=== PATIENT | female | born 1965 | race Caucasian/White ===

== ENCOUNTER 2021-10-08 13:56 | Observation (INO) | payer OTHER ==
[~2021-10-08] VITALS: Ht 167.6 cm; Wt 129.3 kg
[~2021-10-08 13:56] MED LIST: ALBU90OI6 INH; ALPR.25 PO; ALPR1 PO; AMLO5 PO; ATEN50 PO; Ambien10 MG PO; CLON.1 PO; Crutch1 EACH MISC; DIPH50 PO; DOCU100 PO; ESCI20 PO; ESTR.1TPBW TOP; ESTR2 PO; FLUV50 PO; HYDACE5 PO; HYDR1TAB94; IBUP800 PO; K-Dur20 MEQ PO; LISHYD2012 PO; LISHYD2025 PO; LISI20 PO; LORA.5 PO; LOVA40 PO; MECL12.5 PO; MECL25 PO; NIFE30ER PO; Naprosyn500 MG PO; Norco 5-325 Ta1 EACH PO; OLME20 PO; OMEP20ER PO; ONDA8 PO; OXYACE7.5T PO; PARO20 PO; PENVK500 PO; POTA10T PO; POTCHL20ER PO; PRAV20 PO; PRED20 PO; Percocet 5-3251 EACH PO; TRIA80TC TOP; VICODIN 5-3001 EACH; ZOLP10 PO; ZOLP5 PO
[2021-10-08 14:58] LABS: BASOPHILS ABSOLUTE AUTO 0.07 K/mm3 (0.00-0.23); BASOPHILS PERCENT AUTO 0 % (0-2); EOSINOPHILS ABSOLUTE AUTO 0.07 K/mm3 (0.00-0.68); EOSINOPHILS PERCENT AUTO 0 % (0-6); Hemoglobin 14.9 g/dL (11.5-16.0); IMMATURE GRAN ABSOLUTE AUTO 0.06 K/mm3 (0.00-0.10); IMMATURE GRAN PERCENT AUTO 0 % (0-1); LYMPHOCYTES PERCENT AUTO 17 % (21-46); MONOCYTES ABSOLUTE AUTO 1.46 K/mm3 (0.16-1.47); MONOCYTES PERCENT AUTO 8 % (4-13); Mean Corpuscular HGB 28.1 pg (26.0-34.0); Mean Corpuscular HGB Conc 33.9 g/dL (31.5-36.5); Mean Corpuscular Volume 83 fL (80-100); Mean Platelet Volume 9.1 fL (9.1-12.4); NEUTROPHILS ABSOLUTE AUTO 12.96 K/mm3 (1.96-9.15); NEUTROPHILS PERCENT AUTO 74 % (41-73); Platelet Count 304 K/mm3 (150-400); RDW Coefficient Variation 14.5 % (11.7-14.2); RDW Standard Deviation 43.6 fL (35.1-46.3); Red Blood Cell Count 5.31 M/mm3 (3.80-5.20); White Blood Cell Count 17.62 K/mm3 (4.00-11.30)
[2021-10-08 15:35] LABS: Source, Urine Clean Catch
[2021-10-08 15:47] LABS: Alanine Aminotransfer (ALT/SGP 54 U/L (12-78); Albumin, Blood 4.1 g/dL (3.4-5.0); Albumin/Globulin Ratio 1.2 (0.8-1.8); Alk Phos 98 U/L (50-136); Anion Gap 10 mmol/L (6-16); Aspartate Aminotrans (AST/SGOT 18 U/L (12-37); Bilirubin, Total 0.7 mg/dL (0.1-1.0); Blood Urea Nitrogen 7 mg/dL (8-24); Bun/Creatinine Ratio 13.6 (12.0-20.0); CO2, Blood 24 mmol/L (21-32); Calcium, Blood 9.4 mg/dL (8.5-10.1); Chloride, Blood 98 mmol/L (98-108); Creatinine, Blood 0.52 mg/dL (0.40-1.00); Globulin, Blood 3.3 g/dL (2.2-4.0); Glomerular Filtration Rate >60 (60-); Glucose, Blood 111 mg/dL (70-99); Potassium, Blood 4.1 mmol/L (3.5-5.5); Sodium, Blood 132 mmol/L (136-145); Total Protein, Blood 7.4 g/dL (6.4-8.2)
[2021-10-08 15:49] LABS: Appearance, Urine Hazy (Clear); Blood, Urine 2+ (Neg); Color, Urine Amber (P-Yellow); Glucose Qualitative, Urine Neg (Neg); Ketones, Urine 1+ (Neg); Leukocyte Esterase, Urine 1+ (Neg); Nitrite, Urine Neg (Neg); Protein, Urine 3+ (Neg); Urobilinogen, Urine 1+ (Normal); pH, Urine 6.5 (5.0-8.0)
[2021-10-08 16:07] LABS: Bilirubin, Urine 1+ (Neg)
[2021-10-08 16:11] LABS: Bacteria Many /hpf; Mucus Light (0-Heavy); Red Blood Cells, Urine 0-2 /hpf (0-2); Squamous Epithelial Cells Many /hpf (Few)
[2021-10-08] MEDS ORDERED: CYCL10 PO (17:39)
[2021-10-08] MEDS ORDERED: DOXE10 PO (17:39)
[2021-10-08] MEDS ORDERED: CATAPRES0.1 MG PO (17:39)
[2021-10-08] MEDS ORDERED: LISI20 PO (17:40)
[2021-10-08] MEDS ORDERED: HYDCHL25 PO (17:40)
[2021-10-08] MEDS ORDERED: CONEST1.25 PO (17:40)
[2021-10-08 18:20] LABS: Influenza A, PCR NEGATIVE (NEGATIVE); Influenza B, PCR NEGATIVE (NEGATIVE); SARS-Cov-2 (COVID-19) PCR, MMC NEGATIVE (NEGATIVE)
[2021-10-08 18:26] LABS: Resp Syncytial Virus, PCR POSITIVE (NEGATIVE)
--- NOTE | 2021-10-09 02:04 | NUR ---
PT IS ALERT, AWAKE, AND ORIENTED AND IS RESTING IN BED QUIETLY IN STABLE CONDITION. ARRIVED BY 2230 THE PREVIOUS NIGHT AND WAS ASSISTED WITH GOING TO BED WHERE SHE REMAINS SINCE ADMISSION. REPORTED RLQ PAIN AND MEDICATED WITH PRN PAIN INDICATED WITH POSITIVE EFFECT, NO OTHER COMPLAINTS. ASSISTED WITH CARE AND ADLS, MEDICATED WITH ROUTINE MEDS. CALL LIGHT PLACED NEAR HER AND ENCOURAGED TO CALL FOR HELP WHEN ASSISTANCE IS NEEDED SHE IS MONITORED.
--- NOTE | 2021-10-09 17:42 | NUR ---
SHIFT SUMMARY: PATIENT WAS TAKEN TO OR AT 0800 TODAY FOR APPENDECTOMY.1010 PT. BROUGHT BACK TO THE UNIT FROM PACU, AOX4, 3 INCISIONS NOTED AT MID & LEFT ABDOMINAL AREA WITH DERMA [place] DRY & INTACT. AMBULATED WELL TO THE BATHROOM & PUT OUT VERY GOOD AMOUNT OF CLEAR YELLOW URINE. OCCASIONAL NON PRODUCTIVE COUGH NOTED. ATE WELL HER LUNCH & DINNER. PAIN IS CONTROLLED WELL THROUGHOUT THE DAY SINCE AFTER SURGERY.
--- NOTE | 2021-10-10 05:58 | NUR ---
Pt is in bed at this time where she remains much of the night and is resting comfortably in stabe condition. Has reported abd pain and and was medicated accordingly with positive effect, no other complaints. She is alert and oriented, is pleasant. She is able to ambulate to the bathroom with staff supervision for the time being, assisted with bathroom, toileting and adls needs, medicated as indicated. Her incisions to the abdomen are dry and intact with no abnormalities noted. Her call light was placed near her and was urged to call for help when assistance is needed as she is monitored.
[2021-10-10] MEDS ORDERED: OXAYDO5 M1 PO (10:10)
--- NOTE | 2021-10-10 12:02 | NUR ---
Discharged this patient via the wheelchair, aox3, IV access to right ac removed, discharge instruction & prescription given, seen by Joyce for home O2.
== END 2021-10-10 12:00 | disposition home or self-care (01) ==
LOC: ER 13:56 → SURS 21:48
PROVIDERS: Physician Assistant; Student in an Organized Health Care Education/Training Program; ADMIT Surgery
PROC: 0DTJ4ZZ Resection of Appendix, Percutaneous Endoscopic Approach (ICD-10-PCS; principal; 2021-10-09 08:00)
DX: K35.80 Unspecified acute appendicitis (principal); J20.5 Acute bronchitis due to respiratory syncytial virus; R09.02 Hypoxemia; I10 Essential (primary) hypertension; E11.9 Type 2 diabetes mellitus without complications; J45.909 Unspecified asthma, uncomplicated; Z88.8 Allergy status to other drugs, medicaments and biological substances; Z91.040 Latex allergy status; Z20.822 Contact with and (suspected) exposure to COVID-19
CPT/HCPCS: 0241U; 36415; 74176; 80053; 81001; 82947; 83690; 85025; 87086; 93005; 93010; 94760; 96365; 96375; 99285-25; A9270; J0330; J1100; J1170; J1885; J2270; J2405; J2543; J2704; J2710; J3010; J7030; J7120

== ENCOUNTER 2022-06-11 17:52 | Emergency (ER) | payer OTHER ==
[~2022-06-11] VITALS: Ht 167.6 cm; Wt 131.5 kg
[~2022-06-11 17:52] MED LIST changes: +CATAPRES0.1 MG PO; +CONEST1.25 PO; +CYCL10 PO; +DOXE10 PO; +HYDCHL25 PO; +OXAYDO5 M1 PO
== END 2022-06-11 19:55 | disposition home or self-care (01) ==
LOC: ER 17:52
DX: S83.92XA Sprain of unspecified site of left knee, initial encounter (principal); J45.909 Unspecified asthma, uncomplicated; I10 Essential (primary) hypertension; E11.9 Type 2 diabetes mellitus without complications; K21.9 Gastro-esophageal reflux disease without esophagitis; X58.XXXA Exposure to other specified factors, initial encounter; Z88.8 Allergy status to other drugs, medicaments and biological substances; Z91.040 Latex allergy status; Z79.899 Other long term (current) drug therapy
CPT/HCPCS: 29505; 73562-LT; 96372; 99283-25; J1885

== ENCOUNTER 2024-06-04 09:31 | Observation (INO) | payer OTHER ==
[~2024-06-04] VITALS: Ht 167.6 cm; Wt 127.0 kg
[~2024-06-04 09:31] MED LIST changes: +HYDROCODONE-AC1 EA19 PO; -OXAYDO5 M1 PO; +Pravastatin Sod80 MG PO
[2024-06-04 10:07] LABS: BASOPHILS ABSOLUTE AUTO 0.04 K/mm3 (0.00-0.23); BASOPHILS PERCENT AUTO 1 % (0-2); EOSINOPHILS ABSOLUTE AUTO 0.19 K/mm3 (0.00-0.68); EOSINOPHILS PERCENT AUTO 2 % (0-6); Hematocrit 43.2 % (33.0-51.0); Hemoglobin 14.1 g/dL (11.5-16.0); IMMATURE GRAN ABSOLUTE AUTO 0.02 K/mm3 (0.00-0.10); IMMATURE GRAN PERCENT AUTO 0 % (0-1); LYMPHOCYTES PERCENT AUTO 39 % (21-46); MONOCYTES ABSOLUTE AUTO 0.65 K/mm3 (0.16-1.47); MONOCYTES PERCENT AUTO 8 % (4-13); Mean Corpuscular HGB 28.1 pg (26.0-34.0); Mean Corpuscular HGB Conc 32.6 g/dL (31.5-36.5); Mean Corpuscular Volume 86 fL (80-100); Mean Platelet Volume 9.4 fL (9.1-12.4); NEUTROPHILS ABSOLUTE AUTO 4.16 K/mm3 (1.96-9.15); NEUTROPHILS PERCENT AUTO 50 % (41-73); Platelet Count 268 K/mm3 (150-400); RDW Coefficient Variation 13.8 % (11.7-14.2); RDW Standard Deviation 43.7 fL (35.1-46.3); Red Blood Cell Count 5.01 M/mm3 (3.80-5.20); White Blood Cell Count 8.26 K/mm3 (4.00-11.30)
[2024-06-04 10:18] LABS: Albumin, Blood 3.9 g/dL (3.4-5.0); Albumin/Globulin Ratio 1.1 (0.8-1.8); Bilirubin, Total 0.4 mg/dL (0.1-1.0); Bun/Creatinine Ratio 18.3 (12.0-20.0); Calcium, Blood 9.2 mg/dL (8.5-10.1); Creatinine, Blood 0.49 mg/dL (0.40-1.00); Globulin, Blood 3.5 g/dL (2.2-4.0); Potassium, Blood 4.1 mmol/L (3.5-5.5); Total Protein, Blood 7.4 g/dL (6.4-8.2)
[2024-06-04] MEDS ORDERED: Aspirin 325 MG Tab PO ONE (13:30)
[2024-06-04] MEDS ORDERED: Meclizine HCl 25 MG Tab PO PRN (14:15)
[2024-06-04] MEDS ORDERED: OxyCODONE HCL 5 MG TAB PO PRN (14:15)
[2024-06-04] MEDS ORDERED: PAXIL40 MG PO (17:11)
[2024-06-04] MEDS ORDERED: Paxil40 MG PO (17:11)
--- NOTE | 2024-06-04 17:49 | NUR ---
SHIFT SUMMARY PT A NEW ADMIT AT 1700. NO ACUTE ISSUES SINCE THE ADMIT. NO EVENTS PER TELE. PT IS INDEPENDENT IN THE ROOM AND MAKES HER NEEDS KNOWN. AOX4. CP WITH INHALATION, PROVIDER IS AWARE. PT WEARS 3L AT NIGHT, RA DURING THE DAY. PT REPOSITIONS HERSELF IN THE BED. CALL LIGHT WITHIN REACH, BED LOCKED AND IN THE LOWEST POSITION. WILL REPORT TO ONCOMING NURSE.
[2024-06-04] MEDS ORDERED: Albuterol HFA200 ACT/6.7 GM INH INH PRN (18:15)
[2024-06-04] MEDS ORDERED: HYDROcodone 5-APAP 325 TAB PO PRN (18:25)
[2024-06-04 19:36] VITALS: BP 130/73
[2024-06-04] MEDS ORDERED: PARoxetine HCl 20 MG Tab PO SCH (21:00)
[2024-06-04] MEDS ORDERED: Pravastatin Sodium 20 MG Tab PO SCH (21:00)
[2024-06-05 02:54] VITALS: BP 128/82
[2024-06-05 05:40] LABS: Albumin, Blood 3.8 g/dL (3.4-5.0); Anion Gap 11 mmol/L (3-11); Blood Urea Nitrogen 9 mg/dL (8-24); Bun/Creatinine Ratio 17.3 (12.0-20.0); CO2, Blood 24 mmol/L (21-32); Chloride, Blood 106 mmol/L (98-108); Creatinine, Blood 0.52 mg/dL (0.40-1.00); Glomerular Filtration Rate 108 (60-); Glucose, Blood 107 mg/dL (70-99); Phosphorus, Blood 4.4 mg/dL (2.5-4.9); Potassium, Blood 3.7 mmol/L (3.5-5.5); Sodium, Blood 137 mmol/L (136-145)
--- NOTE | 2024-06-05 06:43 | NUR ---
DIRECTOR MONEY PATIENT IS A&OX4, VITALS ARE STABLE, ON 3L NC AT NIGHT AND ROOM AIR DURING THE DAY, ON TELE RUNNING SINUE RHYTHM, PATIENT DENIED ANY PAIN.N CALLS APPROPRIATELY, CALL LIGHT IN REACH AND BED AT A LOW POSITION PATIENT IS NPO, HAS A STRESS TEST THIS MORNING.
[2024-06-05 07:42] VITALS: BP 164/95
[2024-06-05] MEDS ORDERED: HydroCHLOROthiazide 25 mg Tab PO SCH (09:00)
[2024-06-05] MEDS ORDERED: Enoxaparin 40 MG/0.4 ML SYR SC SCH (09:00)
[2024-06-05] MEDS ORDERED: Aspirin 81 MG Chew PO SCH (09:00)
[2024-06-05] MEDS ORDERED: Lisinopril 20 MG Tab PO SCH (09:00)
[2024-06-05] MEDS ORDERED: PARoxetine HCl 20 MG Tab PO SCH (09:00)
[2024-06-05] MEDS ORDERED: K-Dur10 MEQ PO (10:55)
[2024-06-05] MEDS ORDERED: IMITREX50 M2 PO (10:55)
[2024-06-05] MEDS ORDERED: SPIRONOLACTONE50 MG PO (10:56)
[2024-06-05 15:39] VITALS: BP 145/94
--- NOTE | 2024-06-05 16:23 | NUR ---
MET WITH DAWSON TO DISCUSS SYMPTOMS. SHE REPORTED THAT SHE DOES FEEL A BIT BETTER THAN WHEN SHE ARRIVED. SHE IS PENDING A STRESS TEST AND I PROVIDED THERAPUTIC CONVERSATION AND VALIDATED HER FEELINGS WHILE AWAITING TEST RESULTS. PC WILL CONTINE TO PROVIDE SUPPORT
--- NOTE | 2024-06-05 17:25 | NUR ---
SHIFT SUMMARY PT AOX4, INDEPENDENT IN THE ROOM. PT IS TO COMPLETE THE SECOND HALF OF HER STRESS TEST TOMORROW. MEDICATED FOR PAIN PER THE EMAR. NO EVENTS PER TELE. SHE CALLS AND MAKES HER NEEDS KNOWN. CALL LIGHT WITHIN REACH, BED LOCKED AND IN THE LOWEST POSITION. WILL REPORT TO ONCOMING NURSE.
[2024-06-05 19:48] VITALS: BP 143/93
[2024-06-06 05:21] VITALS: BP 150/92
--- NOTE | 2024-06-06 06:31 | NUR ---
DATACAP DEVELOPER PATIENT IS A&OX4, BP ARE SLIGHTLY ELEVATED, ON 3L NC AT NIGHT AND ROOM AIR DURING THE DAY. PATIENT WAS ABLE TO SHOWER LASTNIGHT PLAN: PATIENT HAS THE SECOND PART OF STRESS TEST DUE TODAY AND NEEDS TO BE NPO AFTER BREAKFAST.
[2024-06-06] MEDS ORDERED: Aminophylline 250MG / 10ML 10 ML Vial ONE (07:21)
[2024-06-06] MEDS ORDERED: Regadenoson 0.4 MG/5 ML SYRINGE ONE (07:21)
[2024-06-06 08:23] VITALS: BP 163/98
[2024-06-06] MEDS ORDERED: ASPI81CH PO (13:56)
--- NOTE | 2024-06-06 14:21 | NUR ---
DISCHARGE NOTE PT DISCHARGED TO HOME, WALKED OUT TO HER VEHICLE. IV REMOVED. TELE RETURNED. NO NEW MEDICATIONS. DISCHARGE EDUCATION AND INFORMATION PROVIDED.
== END 2024-06-06 14:20 | disposition home or self-care (01) ==
LOC: ER 09:31 → MEDS 09:32
PROVIDERS: Physician Assistant; ADMIT Internal Medicine
DX: R07.1 Chest pain on breathing (principal); I10 Essential (primary) hypertension; J44.9 Chronic obstructive pulmonary disease, unspecified; E11.9 Type 2 diabetes mellitus without complications; E88.810 Metabolic syndrome; K21.9 Gastro-esophageal reflux disease without esophagitis; Z91.040 Latex allergy status; Z88.8 Allergy status to other drugs, medicaments and biological substances; Z79.899 Other long term (current) drug therapy
CPT/HCPCS: 36415; 71046; 78452; 80053; 80069; 82947; 83036; 83690; 83880; 84484; 85025; 85379; 93005; 93010; 93017; 94760; 96372; 99285-25; A9270; A9500; G0378; J0280; J1650; J2785